=== PATIENT | female | born 1960 | race Caucasian/White ===

== ENCOUNTER → 2016-11-30 | Outpatient (CLI) | payer OTHER ==
--- NOTE | 2016-11-30 13:57 | US ---
EXAMINATION TYPE: US venous doppler duplex LE LT DATE OF EXAM: 11/30/2016 1:45 PM COMPARISON: NONE CLINICAL HISTORY: L Leg Edema LE R60.0 M79.605 Pain in Limb. No h/o dvt SIDE PERFORMED: Left VESSELS IMAGED: External Iliac Vein (EIV) Common Femoral Vein Deep Femoral Vein Greater Saphenous Vein * Femoral Vein Popliteal Vein Small Saphenous Vein * Proximal Calf Veins (* superficial vessels) TECHNOLOGIST IMPRESSION: Left Leg: Appears negative for DVT IMPRESSION: 1. Normal left lower extremity deep venous ultrasound without evidence of deep venous thrombosis.
== END | disposition home or self-care (01) ==
LOC: RADUSWWP 13:18
PROVIDERS: ATTEND Family Medicine
DX: M79.605 Pain in left leg (principal); R60.0 Localized edema

== ENCOUNTER → 2016-12-29 | Outpatient (CLI) | payer OTHER ==
--- NOTE | 2016-12-29 12:55 | BD ---
EXAMINATION TYPE: MG DEXA axial skeleton. DATE OF EXAM: 12/29/2016 8:23 AM COMPARE : 2002 CLINICAL HISTORY: height loss 1 inch Height: 5'4 Weight: 207 FRAX RISK QUESTIONS: Alcohol (3 or more units per day): no Family History (Parent hip fracture): yes Glucocorticoids (More than 3mos): no (Ex: prednisone, prednisolone, methylprednisolone, dexamethasone, and hydrocortisone). History of Fracture in Adulthood: yes Secondary Osteoporosis: 1. Type 1 Diabetes: no 2. Hyperthyroidism: no 3. Menopause before 45: yes 4. Malnutrition: no 5. Chronic liver disease: no Rheumatoid Arthritis: yes Current Tobacco Use: no RISK FACTORS HISTORY OF: Other Fractures since Age 48: When: 2015 Family History of Osteoporosis: yes Active: Postmenopausal woman: MEDICATIONS: Thyroid Medications: Which medication: Synthroid How Lon Additional Medications: Additional History: lupus, Shogren EXAM MEASUREMENTS: Bone mineral densitometry was performed using the [email or web address] System. Bone mineral density as measured about the Lumbar spine is: ----- L1-L4(G/cm2): 1.099 T Score Values are as follows: ----- L2: -1.3 ----- L3: -0.9 ----- L4: 0.0 ----- L1-L4: -0.7 Bone mineral density has: Decreased -1.9% since study of: 08/30/2003 Bone mineral density about the R hip (g/cm2): 1.109 Bone mineral density about the L hip (g/cm2): 1.042 T Score values are as follows: -----R Neck: 0.5 -----L Neck: 0.0 -----R Intertrochanter: -0.1 -----L Intertrochanter: 0.4 Bone mineral density has: Decreased -14.3% since study of: 08/30/2003 IMPRESSION: Osteopenia (T Score between -2.5 and -1 as noted by T score values: L2 There is slightly increased risk of fracture and the patient may be considered for treatment. Re-Screen 1-2 years. NOTE: T-SCORE=SD OF THE YOUNG ADULT MEAN.
--- NOTE | 2016-12-30 09:41 | MM ---
Reason for exam: screening (asymptomatic). Last mammogram was performed 2 years ago. History: Patient is postmenopausal. Physical Findings: A clinical breast exam by your physician is recommended on an annual basis and results should be correlated with mammographic findings. MG Screening Mammo w CAD Bilateral CC and MLO view(s) were taken. Prior study comparison: December 20, 2014, bilateral MG screening mammo w CAD. November 24, 2012, left diagnostic mammogram w/CAD. The breast tissue is almost entirely fat. There is chronic nodularity bilaterally. No significant changes when compared with prior studies. ASSESSMENT: Benign, BI-RAD 2 RECOMMENDATION: Routine screening mammogram of both breasts in 1 year.
== END | disposition home or self-care (01) ==
LOC: RADMAMWWP 08:18
PROVIDERS: ATTEND Family Medicine
DX: Z12.31 Encounter for screening mammogram for malignant neoplasm of breast (principal); M85.88 Other specified disorders of bone density and structure, other site
CPT/HCPCS: 77080; G0202

== ENCOUNTER → 2018-07-14 | Outpatient (CLI) | payer OTHER ==
--- NOTE | 2018-07-15 14:35 | MM ---
Reason for exam: screening (asymptomatic). Last mammogram was performed 1 year and 6 months ago. History: Patient is postmenopausal. Physical Findings: A clinical breast exam by your physician is recommended on an annual basis and results should be correlated with mammographic findings. MG Screening Mammo w CAD Bilateral CC and MLO view(s) were taken. Prior study comparison: December 29, 2016, bilateral MG screening mammo w CAD. December 20, 2014, bilateral MG screening mammo w CAD. There are scattered fibroglandular densities. There is chronic nodularity in the right breast. No significant changes when compared with prior studies. ASSESSMENT: Negative, BI-RAD 1 RECOMMENDATION: Routine screening mammogram of both breasts in 1 year.
== END | disposition home or self-care (01) ==
LOC: RADMAMWWP 07:09
PROVIDERS: ATTEND Family Medicine
DX: Z12.31 Encounter for screening mammogram for malignant neoplasm of breast (principal)
CPT/HCPCS: 77067

== ENCOUNTER → 2019-07-26 | Outpatient (CLI) | payer OTHER ==
--- NOTE | 2019-08-07 08:44 | NM ---
EXAMINATION TYPE: NM bone scan whole body DATE OF EXAM: 07/26/2019 COMPARISON: Correlation outside CT chest abdomen and pelvis from 03/15/2019 HISTORY: 58-year-old female abnormal findings on diagnostic imaging. The patient's outside body CT re ports indeterminate sclerotic foci in the left femoral neck, left ilium, right sacrum, and midthoraci c spine. Technique: Delayed whole-body scanning was performed following the injection of 24.3 mCi Tc 99m MDP. Images acquired 3.5 hours post injection. FINDINGS: Photopenic area left knee suggests underlying knee replacement. There is degenerative uptake at the r ight ankle and bilateral mid to hindfoot regions. Additional degenerative uptake at the right knee. D egenerative uptake lower lumbar spine especially posterior elements towards the left. Additional dege nerative uptake at the shoulders. No discrete focal abnormal uptake within the left femoral neck, lef t iliac bone, right sacrum, or midthoracic spine at the sites of sclerotic foci on CT. IMPRESSION: 1. No increased activity at the sites of sclerotic foci seen on CT of 03/15/2019. No scintigraphic evid ence of osseous metastatic disease. Given the shotty lymphadenopathy reported on patient's outside CT and the sclerotic foci which are nonspecific, consider 6-12 month follow-up CT to reassess. 2. Scattered degenerative activity as mentioned above.
== END | disposition home or self-care (01) ==
LOC: RADNMMAIN 09:53
PROVIDERS: ATTEND Family Medicine
DX: R93.7 Abnormal findings on diagnostic imaging of other parts of musculoskeletal system (principal)
CPT/HCPCS: 78306; A9503

== ENCOUNTER → 2021-04-23 | Outpatient (CLI) | payer OTHER ==
--- NOTE | 2021-04-25 11:22 | MM ---
Reason for exam: screening (asymptomatic). Last mammogram was performed 2 years and 9 months ago. History: Patient is postmenopausal. Physical Findings: A clinical breast exam by your physician is recommended on an annual basis and results should be correlated with mammographic findings. MG Screening Mammo w CAD Bilateral CC and MLO view(s) were taken. Prior study comparison: July 14, 2018, bilateral MG screening mammo w CAD. December 29, 2016, bilateral MG screening mammo w CAD. There are scattered fibroglandular densities. ASSESSMENT: Negative, BI-RAD 1 RECOMMENDATION: Routine screening mammogram of both breasts in 1 year.
== END | disposition home or self-care (01) ==
LOC: RADMAMWWP 07:37
PROVIDERS: ATTEND Family Medicine
DX: Z12.31 Encounter for screening mammogram for malignant neoplasm of breast (principal); Z78.0 Asymptomatic menopausal state
CPT/HCPCS: 77067

== ENCOUNTER → 2021-10-13 | Outpatient (CLI) | payer OTHER ==
[2021-10-13 12:00] LABS: Basophils % (A) 1 %; Eosinophils # (A) 0.1 k/uL (0-0.7); Eosinophils % (A) 3 %; HCT 41.5 % (34.0-46.0); HGB 13.6 gm/dL (11.4-16.0); Lymphocytes # (A) 1.5 k/uL (1.0-4.8); Lymphocytes % (A) 34 %; MCH 29.7 pg (25.0-35.0); MCHC 32.8 g/dL (31.0-37.0); MCV 90.4 fL (80.0-100.0); Monocytes # (A) 0.3 k/uL (0-1.0); Monocytes % (A) 7 %; Neutrophils # (A) 2.3 k/uL (1.3-7.7); Neutrophils % (A) 53 %; Platelet Count 231 k/uL (150-450); RBC 4.59 m/uL (3.80-5.40); RDW 13.4 % (11.5-15.5); WBC 4.2 k/uL (3.8-10.6)
[2021-10-13 12:13] LABS: African American GFR (CKD) >90 (>60 ml/min/1.73 sqM); Anion Gap 7 mmol/L; Blood Urea Nitrogen 17 mg/dL (7-17); Carbon Dioxide 27 mmol/L (22-30); Chloride 104 mmol/L (98-107); Glucose 103 mg/dL (74-99); Non-African American GFR(CKD) >90 (>60 ml/min/1.73 sqM); Potassium 4.4 mmol/L (3.5-5.1); Sodium 138 mmol/L (137-145)
--- NOTE | 2021-10-15 14:37 | HP ---
HISTORY AND PHYSICAL REASON FOR ADMISSION: Surgery Wednesday10/20/2021 HISTORY OF PRESENT ILLNESS: This is a 61-year-old female who presented with a history of "something is falling down", increasing over the past 6 months. She is menopausal and not taking hormone replacement therapy. She denies any postmenopausal bleeding. She is status post hyste[place] [address] Remy. She is sexually active and has no complaint of dyspareunia. No urinary symptomatology. Bowel movements are regular and on a daily basis, however, occasionally the patient does have to splint the perineal body for complete evacuation. PAST MEDICAL HISTORY: Is significant for Sjogren's disease and thyroid disease. PAST SURGICAL HISTORY: Appendectomy 1978, colonoscopy 2017, hysterectomy 2000, knee replacement 2005, tendon repair of the left foot 2010. CURRENT MEDICATIONS: Levothyroxine 150 mcg daily. ALLERGIES: AMOXICILLIN, REACTION UNKNOWN, LEVAQUIN TO WHICH REPORTS A TENDON TEAR A REACTION. FAMILY HISTORY: Significant for hypertension, kidney disease, unspecified heart issues. OBSTETRIC HISTORY: Significant for normal spontaneous vaginal deliveries times two, 1974, 1976, unremarkable. SOCIAL HISTORY: The patient quit tobacco smoking in 1994. She drinks 3-4 cups of coffee daily. She denies alcohol or drug use. She is retired and . EXAM: Patient is 5 foot 4 inches, 212 pounds, BMI is 36, blood pressure 136/80, pulse is 83. HEENT exam reveals good dentition, no thyromegaly, no cervical lymphadenopathy. Breasts are bilaterally symmetric to inspection, no skin changes, nipple discharge, axillary adenopathy, or discernible lesions or masses. ABDOMEN: Soft and nontender, active bowel sounds, no rigidity, no organosplenomegaly. EXTREMITIES revealed no edema, good peripheral pulses, good range of motion. On pelvic exam, there is a grade 3-4 rectocele noted, no obvious cystocele, good vaginal vault suspension. Ovaries are atrophic to palpation. Rectal exam reveals FIT negative stool, good sphincter tone. No obvious lymphadenopathy noted. IMPRESSION: Increasingly symptomatic rectocele, grade 4. Otherwise healthy postmenopausal female. PLAN: We discussed multiple options and the patient is electing to proceed with a rectocele repair surgically. We have discussed the risk of infection, perforation or damage to the rectum, ureters, bladder, blood vessels. We reviewed the risk of bleeding, the risks of anesthesia all in detail. The ACOG pamphlet on pelvic organ prolapse is given to the patient and discussed also thoroughly. I believe the patient understands our discussion with no reservation or question. MMYARAL / IJN: [id number] /
== END ==
LOC: LABPAT 10:04
PROVIDERS: ATTEND Obstetrics & Gynecology
DX: Z01.812 Encounter for preprocedural laboratory examination (principal); N81.6 Rectocele
CPT/HCPCS: 80051; 82565; 82947; 84520; 85025; 87077; 87086; 87186; 93005

== ENCOUNTER 2021-10-20 07:29 | Day surgery (SDC) | payer OTHER ==
[2021-10-16 08:48] VITALS: BMI 36.3
[~2021-10-20 07:29] MED LIST: DEXAMETHASONE SOD PHOSPHATE 4 MG/ML 1 ML VIAL IV ONE; HYDROmorphone 0.5 MG/0.5 ML SYRINGE IVP PRN; LACTATED RINGERS 1,000 ML IV SCH; LIDOCAINE 1% (10MG/ML) FOR IV START INTRADERMA PRN; MIDAZOLAM 2 MG/2 ML VIAL IV PRN; ONDANSETRON 4 MG/2 ML VIAL IVP ONE
[2021-10-20] MEDS ORDERED: GLYCOPYRROLATE 0.2 MG/ML 2 ML VIAL ONE (09:47)
[2021-10-20] MEDS ORDERED: SUCCINYLCHOLINE CHLORIDE 100 MG/5 ML SYR IV ONE (09:47)
[2021-10-20] MEDS ORDERED: ROCURONIUM 10 MG/ML (5 ML VIAL) IV ONE (09:47)
[2021-10-20] MEDS ORDERED: NEOSTIGMINE 1 MG/ML 10 ML VIAL ONE (09:47)
[2021-10-20] MEDS ORDERED: MORPHINE SULFATE (PF) 0.3 MG/0.3 ML SYR ONE (09:47)
[2021-10-20] MEDS ORDERED: .fentaNYL (PF) 50 MCG/ML 2 ML AMP ONE (09:47)
[2021-10-20] MEDS ORDERED: LIDOCAINE 1% INJ 10MG/ML (20 ML MDV) ONE (09:47)
[2021-10-20] MEDS ORDERED: PROPOFOL 10 MG/ML 20 ML VIAL IV ONE (09:47)
[2021-10-20] MEDS ORDERED: VASOPRESSIN IV ONE ×2 (10:10)
[2021-10-20] MEDS ORDERED: BACITRACIN OINT 1 EACH PACKET TOPICAL ONE (10:10)
[2021-10-20] MEDS ORDERED: SODIUM CHLORIDE 0.9% IV ONE ×2 (10:10)
[2021-10-20] MEDS ORDERED: KETOROLAC 15 MG/ML 1 ML VIAL IVP PRN (10:59)
[2021-10-20] MEDS ORDERED: ONDANSETRON 4 MG/2 ML VIAL IVP PRN (10:59)
[2021-10-20] MEDS ORDERED: diphenhydrAMINE 50 MG/ML 1 ML VIAL IVP PRN (10:59)
[2021-10-20] MEDS ORDERED: SIMETHICONE 80 MG CHEWABLE PO PRN (10:59)
[2021-10-20] MEDS ORDERED: METOCLOPRAMIDE 5 MG/ML 2 ML VIAL IVP PRN (10:59)
[2021-10-20] MEDS ORDERED: IBUPROFEN 600 MG TAB PO PRN (10:59)
--- NOTE | 2021-10-20 10:59 | P.OP ---
Date of Procedure: 10/20/21 Preoperative Diagnosis: Increasingly symptomatic grade 4 rectocele Postoperative Diagnosis: Same Procedure(s) Performed: Rectocele repair Anesthesia: BROOKE Surgeon: Ebonie Sr Assessor #1: Robson Barnard Estimated Blood Loss (ml): 20 IV fluids (ml): 400 Urine output (ml): 200 Pathology: none sent Condition: stable Disposition: PACU Description of Procedure: Patient is brought to the operating suite after spinal with Duramorph is placed in the preoperative area. She's placed in the dorsal lithotomy position after a general anesthetic is administered without difficulty. The perineal body is prepped and draped in the usual sterile fashion. The appropriate timeout was performed to assure proper patient and procedural identification. Antibiotics are given. Bladder is drained for approximately 200 mL of clear yellow urine. There is good vaginal apex support noted, no obvious cystocele. A triangular portion of tissue is taken from the perineal body with a scalpel. The posterior vaginal mucosa is injected with a dilute Pitressin solution in the midline and Metzenbaum scissors are used to open this tissue to the apex of the defect. The edges of the mucosa are held with Allis clamps and a fanlike fashion. A sponge rolled finger is used to sweep the fascial plane from the overlying mucosal tissue. 2-0 Vicryl sutures used in an interrupted fashion to bring the fascial edges together thereby completely reducing the large rectocele. Metzenbaum scissors are used to trim the redundant mucosa. 2-0 Vicryl is used in a running locking stitch to bring now the mucosal edges together, completely eliminating the rectocele bulge. An episiotomy like closure is used to complete the case. The vagina is packed with one-inch iodophor gauze with basic tracing. Frazier catheter is placed. Urine is noted to be clear. Rectal exam reveals no suture material present. All sponge needle and enhancement counts are correct. Patient is brought back to recovery room in very good condition, stable vital signs include pulse of 70, blood pressure 123/71, 98% O2 saturation.
--- NOTE | 2021-10-20 15:05 | P.ANPRN ---
Procedure Note - Anesthesia - Epidural/Spinal Spinal Time Out Performed: Yes Date of Procedure: 10/20/21 Procedure Start Time: :03 Procedure Stop Time: 09:06 Location of Patient: PreOp Indication: Acute Post-Operative Pain, Requested by Surgeon Sedation Type: Sedate with meaningful contact maintained Preparation: Sterile Prep Position: Sitting Needle Guage: 25 Blood Aspirated: No Pain Paresthesia on Injection Noted: No Events: Uneventful and Well Tolerated (Duramorph 3 mics plus fentanyl 25 mics)
[2021-10-20] MEDS: SENNOSIDES-DOCUSATE SODIUM 1 EACH TAB PO SCH (20:03)
[2021-10-21 01:08] VITALS: RESP 16
--- NOTE | 2021-10-21 06:45 | P.PN ---
Progress Note - Text Progress Note Date: 10/21/21 Patient seen and examined at bedside POD 1 s/p rectocele repair with spinal duramorph. Patients pain is well controlled as duramorph is starting to wean. Patient reports decreased itching. Patient is able to ambulate without difficulty and has used the restroom several times. Patient denies KEITA, F/C, parathesias, weakness. Site is clean and without erythema. Will continue to follow until discharge home.
--- NOTE | 2021-10-21 06:52 | P.DS ---
Providers Date of admission: 10/20/21 Expected date of discharge: 10/21/21 Attending physician: Ebonie Sr Primary care physician: [facility] Course: This is a 61-year-old female who presented with an increasingly symptomatic grade 4 rectocele, requesting surgical repair, declining option for pessary. Please see dictated history and physical for details. Yesterday under my care with a spinal with Duramorph, she underwent a posterior colporrhaphy without issue. Vaginal packing was placed, Frazier catheter placed. Antibiotics were given. Surgery was unremarkable, please see dictated operative note for details. This morning the patient is doing well. Vaginal packing and Frazier catheter had been removed. She is passing flatus. She is urinating spontaneously. She complains of no pain. There is only scant vaginal drainage. Patient is judged to be in very good condition for discharge home. She will follow-up with me in the office in 2 weeks. She will use [id number] Aleve as needed for pain. I've asked her to call with any difficulties defecating, with any vaginal bleeding, with any pain not alleviated by [id number] products, or indeed with any concerns. She is to keep her bowels moving daily with fiber supplement, fruits vegetables, or water use. Assessment: Doing well postoperative day #1 Patient Condition at Discharge: Good Plan - Discharge Summary New Discharge Prescriptions: No Action Levothyroxine Sodium 150 mcg PO QAM Nitrofurantoin Monohyd/M-Cryst [Macrobid] 100 mg PO Q12HR Discharge Medication List Levothyroxine Sodium 150 mcg PO QAM 10/16/21 [History] Nitrofurantoin Monohyd/M-Cryst [Macrobid] 100 mg PO Q12HR 10/20/21 [History] Follow up Appointment(s)/Referral(s): Ebonie Sr MD [STAFF PHYSICIAN] - 2 Weeks Discharge Disposition: HOME SELF-CARE
[2021-10-21] MEDS: SENNOSIDES-DOCUSATE SODIUM 1 EACH TAB PO SCH (08:08)
[2021-10-21 09:02] VITALS: PULSE 70
[2021-10-21 09:03] VITALS: TEMP 97.9
[2021-10-21 09:07] VITALS: BP 154/87
== END 2021-10-21 11:00 | disposition home or self-care (01) ==
LOC: OR 07:29 → 4FBP 11:42 → OR 10-21 11:00
PROVIDERS: ATTEND Obstetrics & Gynecology
DX: N81.6 Rectocele (principal); M35.00 Sjogren syndrome, unspecified; E07.9 Disorder of thyroid, unspecified; Z20.822 Contact with and (suspected) exposure to COVID-19; Z90.49 Acquired absence of other specified parts of digestive tract; Z90.710 Acquired absence of both cervix and uterus; Z96.659 Presence of unspecified artificial knee joint; Z98.890 Other specified postprocedural states; Z82.49 Family history of ischemic heart disease and other diseases of the circulatory system; Z84.1 Family history of disorders of kidney and ureter; Z87.891 Personal history of nicotine dependence; N95.9 Unspecified menopausal and perimenopausal disorder; Z79.890 Hormone replacement therapy; Z88.1 Allergy status to other antibiotic agents; Z88.0 Allergy status to penicillin
CPT/HCPCS: 86900; 86901; 86850; 87635; 57250; J2250; J1100; J2710; J0690; J2405; J2001; J2274; J3010; J0330; J2704

== ENCOUNTER 2023-01-16 21:50 | Observation (INO) | payer OTHER ==
[2023-01-16] MEDS ORDERED: KETOROLAC 15 MG/ML 1 ML VIAL IVP STA (22:13)
[2023-01-16] MEDS ORDERED: ORPHENADRINE 30 MG/ML 2 ML VIAL IVP STA (22:13)
[2023-01-16 22:40] LABS: Basophils % (A) 0 %; Eosinophils % (A) 0 %; HGB 13.2 gm/dL (11.4-16.0); Lymphocytes # (A) 0.9 k/uL (1.0-4.8); Lymphocytes % (A) 10 %; MCH 29.8 pg (25.0-35.0); MCV 90.1 fL (80.0-100.0); Mean Platelet Volume 8.6; Monocytes # (A) 0.5 k/uL (0-1.0); Monocytes % (A) 6 %; Neutrophils # (A) 7.6 k/uL (1.3-7.7); Neutrophils % (A) 82 %; Platelet Count 153 k/uL (150-450); RBC 4.44 m/uL (3.80-5.40); RDW 13.3 % (11.5-15.5); WBC 9.2 k/uL (3.8-10.6)
[2023-01-16 22:55] LABS: ALT 25 U/L (4-34); AST 28 U/L (14-36); African American GFR (CKD) >90 (>60 ml/min/1.73 sqM); Albumin 4.1 g/dL (3.5-5.0); Alkaline Phosphatase 145 U/L (38-126); Anion Gap 9 mmol/L; Blood Urea Nitrogen 18 mg/dL (7-17); Calcium 9.4 mg/dL (8.4-10.2); Carbon Dioxide 23 mmol/L (22-30); Chloride 102 mmol/L (98-107); Glucose 151 mg/dL (74-99); Non-African American GFR(CKD) >90 (>60 ml/min/1.73 sqM); Potassium 4.1 mmol/L (3.5-5.1); Sodium 134 mmol/L (137-145); Total Bilirubin 0.9 mg/dL (0.2-1.3)
[2023-01-16 22:56] LABS: Partial Thromboplastin Time 22.1 sec (22.0-30.0); Prothrombin Time 10.2 sec (9.0-12.0)
--- NOTE | 2023-01-16 23:17 | US ---
EXAMINATION TYPE: US venous doppler duplex LE RT DATE OF EXAM: 01/16/2023 11:01 PM COMPARISON: NONE CLINICAL HISTORY: pain and swelling. pain in right leg for 3 days, warm to the touch with swelling, n o h/o dvt SIDE PERFORMED: right TECHNIQUE: The lower extremity deep venous system is examined utilizing real time linear array sonog trisha with graded compression, doppler sonography and color-flow sonography. VESSELS IMAGED: Common Femoral Vein Deep Femoral Vein Greater Saphenous Vein * Femoral Vein Popliteal Vein Small Saphenous Vein * Proximal Calf Veins (* superficial vessels) Right Leg: Acute thrombus seen within right PTV's extending up through right CFV, internal echoes wi th little to no blood flow and vein did not compress throughout the whole leg IMPRESSION: There is extensive acute deep vein thrombosis in the right leg in the tibial popliteal an d femoral vein.
[2023-01-16] MEDS ORDERED: HEPARIN SODIUM 1,000 UN/ML (10ML VL) IV PRN (23:26)
[2023-01-16] MEDS ORDERED: HEPARIN SODIUM 1,000 UN/ML (10ML VL) IV ONE (23:26)
[2023-01-16] MEDS: HEPARIN SOD,PORK IN 0.45% NACL 25,000 UNIT in 0.45% NACL 1 250ML.BAG IV SCH (23:47)
--- NOTE | 2023-01-17 00:40 | ED ---
Extremity Problem HPI - General Chief complaint: Extremity Problem,Nontraumatic Stated complaint: Leg pain Time Seen by Provider: 01/16/23 22:09 Source: patient, family Mode of arrival: ambulatory Limitations: no limitations - History of Present Illness Initial comments: Patient is a 62-year-old female presenting with chief complaint of right leg pain for the last 2 days. Patient notes pain from the [place] and down into the calf. She also notes swelling all along the length of the leg. She admits to pain with weightbearing and ambulation. States that she did have a slip without a fall 2 days ago, no other injury. No recent travel or surgery. No hormonal therapy. No history of DVT or family history of blood clots. Patient is not a smoker. - Related Data Home Medications Medication Instructions Recorded Confirmed Levothyroxine Sodium 150 mcg PO QAM 10/16/21 10/20/21 Nitrofurantoin Monohyd/M-Cryst 100 mg PO Q12HR 10/20/21 10/20/21 [Macrobid] Allergies Allergy/AdvReac Type Severity Reaction Status Date / Time levofloxacin [From Levaquin] Allergy Severe Tendon Verified 10/20/21 12:28 tears amoxicillin Allergy Rash/Hives Verified 10/20/21 07:48 Review of Systems ROS Statement: Those systems with pertinent positive or pertinent negative responses have been documented in the HPI. ROS Other: All systems not noted in ROS Statement are negative. Past Medical History Past Medical History: Thyroid Disorder History of Any Multi-Drug Resistant Organisms: None Reported Past Surgical History: Appendectomy, Hysterectomy, Joint Replacement, Orthopedic Surgery Smoking Status: Never smoker Past Alcohol Use History: None Reported Past Drug Use History: None Reported General Exam Limitations: no limitations General appearance: alert, in no apparent distress Head exam: Present: atraumatic, normocephalic, normal inspection Eye exam: Present: normal appearance Neck exam: Present: normal inspection, full ROM Respiratory exam: Present: normal lung sounds bilaterally. Absent: respiratory distress, wheezes, rales, rhonchi, stridor Cardiovascular Exam: Present: regular rate, normal rhythm, normal heart sounds. Absent: systolic murmur, diastolic murmur, rubs, gallop, clicks Right Upper Leg exam: Present: tenderness, swelling Lower Leg exam: Present: tenderness, swelling Neurovascular tendon exam: Present: no vascular compromise Neurological exam: Present: alert, oriented X3, CN II-XII intact Psychiatric exam: Present: normal affect, normal mood Skin exam: Present: warm, dry, intact, normal color. Absent: rash Course Vital Signs 01/16/23 01/16/23 01/17/23 21:52 23:04 01:35 Temperature 99.2 F Pulse Rate 104 H 93 84 Respiratory 20 18 16 Rate Blood Pressure 150/77 131/72 O2 Sat by Pulse 99 96 98 Oximetry Medical Decision Making - Medical Decision Making Was pt. sent in by a medical professional or institution (, PA, SODA MAKER, urgent ca re, hospital, or retirement...) When possible be specific @ -No Did you speak to anyone other than the patient for history (EMS, parent, family, police, friend...)? What history was obtained from this source @ -No Did you review nursing and triage notes (agree or disagree)? Why? @ -I reviewed and agree with nursing and triage notes Were old charts reviewed (outside hosp., previous admission, EMS record, old EKG, old radiological studies, urgent care reports/EKG's, retirement records)? Report findings @ -No old charts were reviewed Differential Diagnosis (chest pain, altered mental status, abdominal pain women, abdominal pain men, vaginal bleeding, weakness, fever, dyspnea, syncope, headache, dizziness, GI bleed, back pain, seizure, CVA, palpatations, mental health, musculoskeletal)? @ -Differential Musculoskeletal Muscular strain, contusion, ligament sprain, fracture, arthritis, septic arthritis, bursitis, cellulitis, muscle spasm, nerve compression, DVT, arterial occlusion, herpes zoster, electrolyte abnormality, tumor.... This is not meant to be in all inclusive list EKG interpreted by me (3pts min.). @ -As above X-rays interpreted by me (1pt min.). @ -None done CT interpreted by me (1pt min.). @ -CT shows no evidence of hemodynamic arterial stenosis. Mild atherosclerotic vascular disease. Multiple emboli in the right lower lobe pulmonary artery. Thrombosis of the right femoral vein with surrounding edema. No arterial aneurysm or dissection. Extensive colonic diverticulosis without diverticulitis. U/S interpreted by me (1pt. min.). @ -Ultrasound shows extensive acute DVT in the right leg and the tibial popliteal and femoral vein What testing was considered but not performed or refused? (CT, X-rays, U/S, labs)? Why? @ -None What meds were considered but not given or refused? Why? @ -None Did you discuss the management of the patient with other professionals (professionals i.e. , PA, SODA MAKER, lab, RT, psych nurse, social science manager, boiler/chiller operator, teacher, chief supply chain officer, protective services case worker)? Give summary @ -Discussed with vascular surgeon Dr. Segura and admitting physician Dr. Burt Was smoking cessation discussed for >3mins.? @ -No Was critical care preformed (if so, how long)? @ -No Were there social determinants of health that impacted care today? How? (Homelessness, low income, unemployed, alcoholism, drug addiction, transpor tation, low edu. Level, literacy, decrease access to med. care, snf, rehab)? @ -No Was there de-escalation of care discussed even if they declined (Discuss DNR or withdrawal of care, Hospice)? DNR status @ -No What co-morbidities impacted this encounter? (DM, HTN, Smoking, COPD, CAD, Cancer, CVA, ARF, Chemo, Hep., AIDS, mental health diagnosis, sleep apnea, morbid obesity)? @ -None Was patient admitted / discharged? Hospital course, mention meds given and route, prescriptions, significant lab abnormalities, going to OR and other pertinent info. @ -Patient is a 62-year-old female presenting with chief complaint of right leg pain and swelling for the last 2 days. On physical examination there is extensive swelling, pedal pulses 2+. Normal capillary refill in the leg is pink and warm. Ultrasound shows evidence of extensive DVT. I spoke with vascular michael dena on-call Dr. Segura, patient was started on heparin and CTA was obtained. CTA shows evidence of pulmonary embolisms. Patient will be admitted. I spoke with Dr. Burt who accepted admission. Patient is agreeable with this plan. I discussed this case with my attending Dr. Phipps. Undiagnosed new problem with uncertain prognosis? @ -No Drug Therapy requiring intensive monitoring for toxicity (Heparin, Nitro, Insulin, Cardizem)? @ -No Were any procedures done? @ -No Diagnosis/symptom? @ -DVT Acute, or Chronic, or Acute on Chronic? @ -Acute Uncomplicated (without systemic symptoms) or Complicated (systemic symptoms)? @ -Complicated Side effects of treatment? @ -Heparin increases the likelihood of inappropriate bleeding Exacerbation, Progression, or Severe Exacerbation? @ -No Poses a threat to life or bodily function? How? (Chest pain, [place], [place], pneumonia, PE, COPD, DKA, ARF, appy, cholecystitis, CVA, Diverticulitis, Homicidal, Suicidal, threat to staff... and all critical care pts) @ -Yes - Lab Data Result diagrams: 01/16/23 22:27 01/16/23 22: Lab Results 01/16/23 01/16/23 01/16/23 Range/Units 22:27 22: 22: WBC 9.2 (3.8-10.6) k/uL RBC 4.44 (3.80-5.40) m/uL Hgb 13.2 (11.4-16.0) gm/dL Hct 40.0 (34.0-46.0) % MCV 90.1 (80.0-100.0) fL MCH 29.8 (25.0-35.0) pg MCHC 33.0 (31.0-37.0) g/dL RDW 13.3 (11.5-15.5) % Plt Count 153 (150-450) k/uL MPV 8.6 Neutrophils % 82 % Lymphocytes % 10 % Monocytes % 6 % Eosinophils % 0 % Basophils % 0 % Neutrophils # 7.6 (1.3-7.7) k/uL Lymphocytes # 0.9 L (1.0-4.8) k/uL Monocytes # 0.5 (0-1.0) k/uL Eosinophils # 0.0 (0-0.7) k/uL Basophils # 0.0 (0-0.2) k/uL PT 10.2 (9.0-12.0) sec INR 1.0 (<1.2) APTT 22.1 (22.0-30.0) sec Sodium 134 L (137-145) mmol/L Potassium 4.1 (3.5-5.1) mmol/L Chloride 102 (98-107) mmol/L Carbon Dioxide 23 (22-30) mmol/L Anion Gap 9 mmol/L BUN 18 H (7-17) mg/dL Creatinine 0.67 (0.52-1.04) mg/dL Est GFR (CKD-EPI)AfAm >90 (>60 ml/min/1.73 sqM) Est GFR (CKD-EPI)NonAf >90 (>60 ml/min/1.73 sqM) Glucose 151 H (74-99) mg/dL Calcium 9.4 (8.4-10.2) mg/dL Total Bilirubin 0.9 (0.2-1.3) mg/dL AST 28 (14-36) U/L ALT 25 (4-34) U/L Alkaline Phosphatase 145 H (38-126) U/L Total Protein 8.0 (6.3-8.2) g/dL Albumin 4.1 (3.5-5.0) g/dL - EKG Data -: EKG Interpreted by Me EKG Comments: Sinus rhythm ventricular rate 84. MI interval 170. QRS 98. QT 347. QTc 388. Disposition Clinical Impression: Deep vein thrombosis (DVT) of lower extremity Disposition: ADMITTED IP TO THIS [facility] Condition: Fair Time of Disposition: 04:08 Decision to Admit Reason: Admit from EC Decision Date: 01/17/23 Decision Time: 04:08
--- NOTE | 2023-01-17 03:33 | CT ---
CT angiogram of the chest abdomen and pelvis with runoff. History deep vein thrombosis right leg. Comparison none. FINDINGS: Images obtained from the aortic arch to the mid abdominal aorta with no contrast. Images obtained from the thoracic inlet to the bottom of the feet with the IV contrast Isovue 100 mL. There are Three-D postprocessed images. There is some mild subsegmental atelectasis right lung base. Heart size is normal. No pericardial eff usion. No mediastinal adenopathy. There are no hilar masses. There are a few right bronchial lymph no fermin up to 1.5 cm. There is filling defects in the branches of the right lower lobe pulmonary artery. No pleural effusion. Liver spleen and stomach pancreas and gallbladder appear intact. The bile ducts are nondilated. There is no adrenal mass. Kidneys show satisfactory contrast opacification. No hydronephrosis. Ureter s are not dilated. No retroperitoneal adenopathy. The bladder distends smoothly. No inguinal hernia. No free fluid in the pelvis. There are numerous sigmoid diverticula. No diverticulitis. There is 4 cm cortical cyst interpolar left kidney. There are other smaller renal cortical cysts. No evidence of s olid renal mass. There is no mesenteric edema. No ascites or free air. No sign of a bowel obstruction. There is arterial flow in the abdominal aorta and the celiac artery and superior mesenteric artery. T here is arterial flow in the renal and iliac and femoral arteries. There is variable mild plaque form ation in the iliac arteries. There is some edema and swelling involving the right femoral vein. There is arterial flow in both femoral arteries and the popliteal arteries. There is metal artifact which obscures the vessels at the knees. There is arterial flow in the tibial arteries and the tibial artery trifurcations. There is arterial flow in the anterior and posterior tibial artery and the peroneal artery bilaterally. There is dimini shed distal left anterior tibial artery flow at the left ankle. There is arterial flow in the anterio r posterior tibial artery at the right ankle. There is diminished distal arterial flow in the right p osterior tibial artery at the mid foot. There is good distal arterial flow in the anterior and stem sizer ior tibial artery at the mid foot. There is arterial flow in the inferior mesenteric artery There is intact thoracic and lumbar spine. Bony pelvis is intact. IMPRESSION: No evidence of hemodynamic arterial stenosis. Mild atherosclerotic vascular disease. Multiple emboli in the right lower lobe pulmonary artery. Thrombosis of the right femoral vein with surrounding edema. No arterial aneurysm or dissection. Extensive colonic diverticulosis without diverticulitis. Exam was discussed with emergency room attending staff at 3:30 a.m.
[2023-01-17] MEDS ORDERED: NALOXONE 0.4 MG/ML 1 ML VIAL IV PRN (04:05)
--- NOTE | 2023-01-17 05:37 | P.HPIM ---
History of Present Illness H&P Date: 01/17/23 The patient is a 62-year-old female with a PMH of hypothyroidism who presents to the emergency room with right lower extremity pain and swelling. The patient reports that her symptoms started this past with right medial thigh achiness which gradually worsened, and began to radiate down towards her calf and up into her hip. Venous Doppler of the right lower extremity revealed extensive acute DVT in the tibial, popliteal, and femoral veins. The patient denies any trauma to the right leg. Denies recent surgeries, prolonged immobilizations, recent trips. Denies any new medications. Denies any prior history of blood clots. Denies fever, chills, chest pain, shortness of breath, palpitations. Review of systems: Pertinent positives and negatives as discussed in HPI, a complete review of systems was performed and all other systems are negative. Physical examination: Vital signs reviewed General: non toxic, no distress, appears at stated age, obese Derm: no unusual rashes/lesions, warm Head: atraumatic, normocephalic, symmetric Eyes: EOMI, no lid lag, anicteric sclera, pupils equal round reactive to light ENT: Nose and ears atraumatic Neck: No cervical lymphadenopathy, trachea midline, supple Mouth: no lip lesion, mucus membranes moist Cardiovascular: S1S2 reg, no murmur, positive dorsalis pedis pulse bilateral, right lower extremity swelling noted from calf to hip without overlying skin changes Lungs: CTA bilateral, no rhonchi, no rales, no accessory muscle use Abdominal: soft, nontender to palpation, no guarding Ext: muscle strength 5 out of 5 in all 4 extremities grossly, no gross muscle atrophy, no contractures, Neuro: CN II-XI grossly intact, no gross focal neuro deficits Psych: Alert, oriented, appropriate affect Assessment: Acute unprovoked right lower extremity DVT Hyperglycemia Chronic conditions: Hypothyroidism Imaging: Venous Doppler right lower extremity revealed an acute DVT in the right tibial, popliteal, and femoral veins. CT angiogram of chest, abdomen, and pelvis with runoff revealed multiple emboli in the right lower lobe pulmonary artery with thrombosis of the right femoral vein with surrounding edema. Data Review: Vital signs upon presentation revealed BP 150/77, pulse 104, respiratory rate 20, temp 99.2F, and SpO2 99% on room air. Laboratory evaluation revealed a sodium of 134, BUN 18, glucose 151, alk phos 145, and troponin less than 0.012. Plan: Continue with high intensity heparin infusion with PTT monitoring Case discussed by ED provider with vascular surgery dermatology nurse practitioner Check A1C Insulin sliding scale C/w home synthroid dose DVT prophylaxis: Heparin infusion The patient is admitted with an anticipated less than 2 midnight stay for evaluation of acute DVt CODE STATUS: Full Code Discussed with: Patient Anticipated discharge place: Home Past Medical History Past Medical History: Thyroid Disorder History of Any Multi-Drug Resistant Organisms: None Reported Past Surgical History: Appendectomy, Hysterectomy, Joint Replacement, Orthopedic Surgery Additional Past Surgical History / Comment(s): left foot surgery Past Anesthesia/Blood Transfusion Reactions: No Reported Reaction Smoking Status: Never smoker Past Alcohol Use History: None Reported Past Drug Use History: None Reported - Past Family History Mother Family Medical History: Renal Disease Medications and Allergies Home Medications Medication Instructions Recorded Confirmed Type Levothyroxine Sodium 150 mcg PO QAM 10/16/21 01/17/23 History Nitrofurantoin Monohyd/M-Cryst 100 mg PO Q12HR 10/20/21 10/20/21 History [Macrobid] Allergies Allergy/AdvReac Type Severity Reaction Status Date / Time levofloxacin [From Levaquin] Allergy Severe Tendon Verified 10/20/21 12:28 tears amoxicillin Allergy Rash/Hives Verified 10/20/21 07:48 Physical Exam Vitals: Vital Signs Temp Pulse Pulse Resp BP BP Pulse Ox 01/17/23 05:19 81 18 01/17/23 04:17 98.7 F 81 18 122/77 98 01/17/23 01:35 84 16 131/72 98 01/16/23 23:04 93 18 96 01/16/23 21:52 99.2 F 104 H 20 150/77 99 Intake and Output 01/16/23 01/16/23 01/17/23 14:59 22:59 07:59 Intake Total 10 Balance 10 Intake: IV 10 0.9 10 Other: Weight 94.347 kg 94.347 kg Results CBC & Chem 7: 01/16/23 22:27 01/16/23 22:27 Labs: Abnormal Lab Results - Last 24 Hours (Table) 01/16/23 01/16/23 Range/Units 22:27 22:27 Lymphocytes # 0.9 L (1.0-4.8) k/uL Sodium 134 L (137-145) mmol/L BUN 18 H (7-17) mg/dL Glucose 151 H (74-99) mg/dL Alkaline Phosphatase 145 H (38-126) U/L Thrombosis Risk Factor Assmnt - Choose All That Apply Any of the Below Risk Factors Present?: Yes Each Factor Represents 1 point: Swollen legs (current) Other Risk Factors: Yes Each Risk Factor Represents 2 Points: Age 61-74 years Other congenital or acquired thrombophilia - If yes, enter type in comment: No Thrombosis Risk Factor Assessment Total Risk Factor Score: 3 Thrombosis Risk Factor Assessment Level: Moderate Risk
[2023-01-17 06:09] LABS: Glucose,Whole Blood 102 mg/dL (70-110)
[2023-01-17 07:28] LABS: Basophils % (A) 0 %; Eosinophils # (A) 0.1 k/uL (0-0.7); Eosinophils % (A) 1 %; HCT 39.4 % (34.0-46.0); HGB 12.8 gm/dL (11.4-16.0); Lymphocytes # (A) 1.9 k/uL (1.0-4.8); Lymphocytes % (A) 24 %; MCH 29.6 pg (25.0-35.0); MCHC 32.5 g/dL (31.0-37.0); Mean Platelet Volume 8.6; Monocytes # (A) 0.5 k/uL (0-1.0); Monocytes % (A) 6 %; Neutrophils # (A) 5.1 k/uL (1.3-7.7); Neutrophils % (A) 66 %; Platelet Count 163 k/uL (150-450); RBC 4.33 m/uL (3.80-5.40); RDW 13.5 % (11.5-15.5); WBC 7.8 k/uL (3.8-10.6)
[2023-01-17] MEDS ORDERED: INSULIN ASPART (NovoLOG) 100 UNIT/ML VIAL SQ SCH (07:30)
[2023-01-17] MEDS: ACETAMINOPHEN TAB 500 MG TAB PO PRN ×2 (09:59→20:13)
[2023-01-17] MEDS: LEVOTHYROXINE 75 MCG TAB PO SCH (11:34)
[2023-01-17] MEDS: HEPARIN SOD,PORK IN 0.45% NACL 25,000 UNIT in 0.45% NACL 1 250ML.BAG IV SCH (14:20)
[2023-01-18] MEDS: ACETAMINOPHEN TAB 500 MG TAB PO PRN (04:49)
[2023-01-18] MEDS: HEPARIN SOD,PORK IN 0.45% NACL 25,000 UNIT in 0.45% NACL 1 250ML.BAG IV SCH (04:50)
[2023-01-18] MEDS: LEVOTHYROXINE 75 MCG TAB PO SCH (06:11)
[2023-01-18 06:50] LABS: Basophils % (A) 0 %; Eosinophils # (A) 0.2 k/uL (0-0.7); Eosinophils % (A) 3 %; HCT 36.4 % (34.0-46.0); HGB 11.8 gm/dL (11.4-16.0); Lymphocytes # (A) 1.3 k/uL (1.0-4.8); Lymphocytes % (A) 20 %; MCH 29.2 pg (25.0-35.0); MCHC 32.3 g/dL (31.0-37.0); MCV 90.5 fL (80.0-100.0); Mean Platelet Volume 8.8; Monocytes # (A) 0.4 k/uL (0-1.0); Monocytes % (A) 6 %; Neutrophils # (A) 4.6 k/uL (1.3-7.7); Neutrophils % (A) 69 %; Platelet Count 169 k/uL (150-450); RBC 4.03 m/uL (3.80-5.40); RDW 13.3 % (11.5-15.5); WBC 6.8 k/uL (3.8-10.6)
[2023-01-18] MEDS ORDERED: PANTOPRAZOLE 40 MG TABLET PO SCH (07:30)
[2023-01-18 07:34] LABS: African American GFR (CKD) >90 (>60 ml/min/1.73 sqM); Anion Gap 8 mmol/L; Blood Urea Nitrogen 14 mg/dL (7-17); Calcium 9.4 mg/dL (8.4-10.2); Carbon Dioxide 26 mmol/L (22-30); Chloride 103 mmol/L (98-107); Glucose 110 mg/dL (74-99); Non-African American GFR(CKD) >90 (>60 ml/min/1.73 sqM); Potassium 5.1 mmol/L (3.5-5.1); Sodium 137 mmol/L (137-145)
[2023-01-18 08:10] VITALS: TEMP 98.6
--- NOTE | 2023-01-18 08:43 | P.GSCN ---
History of Present Illness Consult date: 01/18/23 Reason for Consult: DVT Requesting physician: Sindhu Guevara History of present illness: This is a pleasant 62-year-old female who presented to the emergency department late Wednesday evening with complaints of right lower extremity pain and swelling. Patient states she started feeling some discomfort in the right lower extremity, she states that she did have a slip but no fall. On Wednesday continue to have increased pain and swelling difficult to walk on and get on and off the toilet. Pain continued into Wednesday which prompted the patient to come to the emergency department. She states pain is in her upper thigh down to her calf. No previous history of DVT, no previous history of clotting disor srinivas or blood clots, and no family history. Patient denies any recent surgeries or recent travel. She did travel in the beginning of December and flew to [place]. However states she was in first class and was able to get up and move around. She denies any shortness of breath currently but states that she has had some dyspnea with exertion with carrying groceries. Denies any abdominal pain, nausea, vomiting, fevers or chills. Vital signs temperature 98.6 heart rate 86 respiratory rate 16 blood pressure 128/82 oxygen 98% on room air. Troponins were negative. Patient was started on a heparin drip. Imaging workup Venous duplex right lower extremity reports extensive acute deep vein thrombosis in the right leg and the tibial popliteal and femoral vein. CT angiogram chest abdomen and pelvis with runoff reports no evidence of hemodynamic arterial stenosis. Mild arthrosclerotic vascular disease. Multiple emboli in the right lower lobe pulmonary artery. Thrombosis of the right fem oral vein with surrounding edema. No arterial aneurysm or dissection. Extensive colonic diverticulosis without diverticulitis. Review of Systems A 14 point review systems was completed all pertinent positives and negatives as stated in the HPI. Past Medical History Past Medical History: Thyroid Disorder History of Any Multi-Drug Resistant Organisms: None Reported Past Surgical History: Appendectomy, Hysterectomy, Joint Replacement, Orthopedic Surgery Additional Past Surgical History / Comment(s): left foot surgery Past Anesthesia/Blood Transfusion Reactions: No Reported Reaction Smoking Status: Never smoker Past Alcohol Use History: None Reported Past Drug Use History: None Reported - Past Family History Mother Family Medical History: Renal Disease Medications and Allergies Home Medications Medication Instructions Recorded Confirmed Type Levothyroxine Sodium 150 mcg PO DAILY 10/16/21 01/17/23 History Omeprazole 20 mg PO DAILY 01/17/23 01/17/23 History Acetaminophen Tab [Tylenol] 1,000 mg PO Q6HR PRN tab 01/18/23 Rx Apixaban [Eliquis Starter Pack 5 - 10 mg PO DIRECTED 30 Days 01/18/23 Rx (for VTE)] #1 each Allergies Allergy/AdvReac Type Severity Reaction Status Date / Time levofloxacin [From Levaquin] Allergy Severe Tendon Verified 01/17/23 11:36 tears amoxicillin Allergy Rash/Hives Verified 01/17/23 11:36 Surgical - Exam Vital Signs Temp Pulse Resp BP Pulse Ox 99.2 F 104 H 20 150/77 99 01/16/23 21:52 01/16/23 21:52 01/16/23 21:52 01/16/23 21:52 01/16/23 21:52 General appearance: The patient is alert, oriented, appears in no acute distress. Obese. HET: Head is normocephalic and atraumatic. Pupils are equal and reactive. Neck: Supple. Trachea midline. Heart: Regular. Lungs: Equal expansion, normal respiratory effort. Clear to auscultation. Abdomen: Soft, nontender, nondistended. Extremities: Normal skin color and turgor. Right lower extremity edema, mild erythema of left medial thigh with tenderness to palpation. Palpable bilateral femoral and dorsalis pedis pulses. Neurological: No focal deficits. Strength and sensation are grossly intact. Results - Labs 01/18/23 06:05 01/18/23 06:05 Abnormal Lab Results - Last 24 Hours (Table) 01/18/23 01/18/23 Range/Units 06:05 06:05 APTT 53.7 H (22.0-30.0) sec Glucose 110 H (74-99) mg/dL Diabetes panel 01/18/23 Range/Units 06:05 Sodium 137 (137-145) mmol/L Potassium 5.1 (3.5-5.1) mmol/L Chloride 103 (98-107) mmol/L Carbon Dioxide 26 (22-30) mmol/L BUN 14 (7-17) mg/dL Creatinine 0.58 (0.52-1.04) mg/dL Glucose 110 H (74-99) mg/dL Calcium 9.4 (8.4-10.2) mg/dL Calcium panel 01/18/23 Range/Units 06:05 Calcium 9.4 (8.4-10.2) mg/dL Pituitary panel 01/18/23 Range/Units 06:05 Sodium 137 (137-145) mmol/L Potassium 5.1 (3.5-5.1) mmol/L Chloride 103 (98-107) mmol/L Carbon Dioxide 26 (22-30) mmol/L BUN 14 (7-17) mg/dL Creatinine 0.58 (0.52-1.04) mg/dL Glucose 110 H (74-99) mg/dL Calcium 9.4 (8.4-10.2) mg/dL Adrenal panel 01/18/23 Range/Units 06:05 Sodium 137 (137-145) mmol/L Potassium 5.1 (3.5-5.1) mmol/L Chloride 103 (98-107) mmol/L Carbon Dioxide 26 (22-30) mmol/L BUN 14 (7-17) mg/dL Creatinine 0.58 (0.52-1.04) mg/dL Glucose 110 H (74-99) mg/dL Calcium 9.4 (8.4-10.2) mg/dL Assessment and Plan Assessment: 1. Right lower extremity acute deep vein thrombosis, unprovoked 2. Multiple pulmonary emboli in right pulmonary artery 3. Hypothyroidism Plan: 1. Continue symptomatic and supportive care 2. Continue heparin drip for now, transition to Eliquis 3. Thigh-high NINO hose to right lower extremity 4. Elevate right lower extremity 5. Patient is cleared for discharge from vascular surgery. Follow up with Dr. Segura in 1-2 weeks. Thank you for this consultation. The impression and plan of care has been dictated as directed. Dr. Layne I performed a history and examination of this patient, discussed the same with the dictator. I agree with the dictator's note ,documented as a scribe. Any additional findings or plans will be noted.
--- NOTE | 2023-01-18 10:04 | P.DS ---
Providers Date of admission: 01/17/23 04:10 Expected date of discharge: 01/18/23 Attending physician: John Burt MD Consults: 01/17/23 04:05 Consult Physician Urgent Consulting Provider: Von Laird Consult Reason/Comments: DVT Do you want consulting provider notified?: Yes Primary care physician: [facility] Course: Assessment: Acute unprovoked right lower extremity DVT Hyperglycemia Chronic conditions: Hypothyroidism The patient is a 62-year-old female with a PMH of hypothyroidism who presented to the emergency room with right lower extremity pain and swelling. Vital signs upon presentation revealed BP 150/77, pulse 104, respiratory rate 20, temp 99.2F, and SpO2 99% on room air. Laboratory evaluation revealed a sodium of 134, BUN 18, glucose 151, alk phos 145, and troponin less than 0.012. Venous Doppler right lower extremity revealed an acute DVT in the right tibial, popliteal, and femoral veins. CT angiogram of chest, abdomen, and pelvis with runoff revealed multiple emboli in the right lower lobe pulmonary artery with thrombosis of the right femoral vein with surrounding edema. Patient was admitted to the hospital after discussion with the emergency room physician, and started on high intensity heparin drip. She was transitioned to Apixiban after 24 hours. She was discharged home with PCP follow-up and with Apixiban started back. I spent 34 minutes coordinating this dischare on 01/18 Gen: awake, alert HEENT: normocephalic, atraumatic, good hearing acuity, moist mucous membranes Resp: good air exchange, breathing comfortably with no accessory muscle use CVS: good distal perfusion x 4, GI: soft, NTTP, ND : no SPT, no CVAT, alexander catheter not present MSK: Right-sided pitting edema, no clubbing Neuro: non-focal, moving all extremities Psych: cooperative, euthymic mood Patient Condition at Discharge: Good Plan - Discharge Summary Discharge Rx Participant: Yes New Discharge Prescriptions: New Acetaminophen Tab [Tylenol] 1,000 mg PO Q6HR PRN tab PRN Reason: Fever and/ or Mild Pain Apixaban [Eliquis Starter Pack (for VTE)] 5 - 10 mg PO DIRECTED 30 Days #1 each Continue Levothyroxine Sodium 150 mcg PO DAILY Omeprazole 20 mg PO DAILY Discharge Medication List Levothyroxine Sodium 150 mcg PO DAILY 10/16/21 [History] Omeprazole 20 mg PO DAILY 01/17/23 [History] Acetaminophen Tab [Tylenol] 1,000 mg PO Q6HR PRN tab 01/18/23 [Rx] Apixaban [Eliquis Starter Pack (for VTE)] 5 - 10 mg PO DIRECTED 30 Days #1 each 01/18/23 [Rx] Follow up Appointment(s)/Referral(s): Yo Zhao MD [Primary Care Provider] - 1-2 days Discharge Disposition: HOME SELF-CARE
[2023-01-18] MEDS ORDERED: APIXABAN 5 MG TAB PO SCH (10:15)
[2023-01-18 11:53] VITALS: BP 133/85; PULSE 85; RESP 18
== END 2023-01-18 15:47 | disposition home or self-care (01) ==
LOC: EC 21:50 → 3SCARD 01-17 04:10 → INTOOBSV 01-17 04:10
PROVIDERS: ADMIT Internal Medicine; ATTEND Internal Medicine
DX: M79.606 Pain in leg, unspecified (principal); I82.401 Acute embolism and thrombosis of unspecified deep veins of right lower extremity; R73.9 Hyperglycemia, unspecified; E03.9 Hypothyroidism, unspecified; Z79.890 Hormone replacement therapy; Z88.8 Allergy status to other drugs, medicaments and biological substances; Z88.0 Allergy status to penicillin; Z90.49 Acquired absence of other specified parts of digestive tract; Z90.710 Acquired absence of both cervix and uterus; Z96.60 Presence of unspecified orthopedic joint implant
CPT/HCPCS: 96361 ×3; 96376; 96365; 96375; 99285; 36415; 93005; 80053; 80048; 83735; 84484; 85025 ×3; 85610; 85730 ×3; 83036; 93971; 75635; 71275; G0378; J2360; J1644 ×4; J1885; Q9967

== ENCOUNTER → 2025-02-08 | Outpatient (CLI) | payer MEDICARE ==
--- NOTE | 2025-02-08 07:32 | MM ---
Reason for Exam: Screening (asymptomatic). Last mammogram was performed 1 year(s) and 1 month(s) ago. Patient History: Menarche at age 10. First Full-Term at age 15. Left ovary removed at age 40. Right ovary removed at age 40. Hysterectomy at age 40. Postmenopausal. Risk Values: Michelle 5 year model risk: 1.2%. NCI Lifetime model risk: 4.4%. Prior Study Comparison: 04/23/2021 Bilateral Screening Mammogram, [facility]. 01/07/2023 Bilateral MG screening mammo w CAD, [facility]. 01/10/2024 Bilateral MG 3D screening mammo w/cad, [facility]. Tissue Density: There are scattered areas of fibroglandular density. Findings: Analyzed By CAD. There is no suspicious group of microcalcifications or new suspicious mass in either breast. Overall Assessment: Negative, BI-RAD 1 Management: Screening Mammogram of both breasts in 1 year. . Patient should continue monthly self-breast exams. A clinical breast exam by your physician is recommended on an annual basis. This exam should not preclude additional follow-up of suspicious palpable abnormalities. Note on Michelle scores and lifetime risk: 1. A Michelle score greater than 3% is considered moderate risk. If this is the case, consider specialist referral to assess eligibility for a risk reducing agent. 2. If overall lifetime risk for the development of breast cancer is 20% or higher, the patient may qualify for future screening with alternating mammogram and breast MRI. [facility], , 02/08/2025 7:29 AM. Electronically signed and approved by: Tello Guajardo M.D. Radiolog[facility]
== END | disposition home or self-care (01) ==
LOC: RADMAMWWP 07:16
PROVIDERS: ATTEND Family Medicine
DX: Z12.31 Encounter for screening mammogram for malignant neoplasm of breast (principal); R92.323 Mammographic fibroglandular density, bilateral breasts; Z78.0 Asymptomatic menopausal state
CPT/HCPCS: 77063; 77067